=== PATIENT | male | born 1955 | race Caucasian/White ===

== ENCOUNTER → 2024-10-25 14:12 | Outpatient (REF) | payer BC, MEDICARE, SELFPAY | LOC: RAD 14:12 | PROVIDERS: ATTENDING PHYSICIAN Orthopaedic Surgery Adult Reconstructive Orthopaedic Surgery; FAMILY PHYSICIAN Internal Medicine | DX: R60.9 Edema, unspecified (principal) | CPT/HCPCS: 93971 ==